=== PATIENT | female | born 1940 | race Two or more races ===

== ENCOUNTER 2024-01-28 12:50 | Emergency (ER) | payer OTHER ==
[~2024-01-28] VITALS: Ht 149.9 cm; Wt 51.0 kg
[2024-01-28 14:14] VITALS: BP 145/47; PULSE 87; RESP 18; O2SAT 93
[2024-01-28] MEDS ORDERED: ACET-1080 PO (14:14)
[2024-01-28] MEDS: ACETAMINOPHEN 500 MG TAB PO ONE (14:19)
== END 2024-01-28 14:42 | disposition home or self-care (01) ==
LOC: ER 12:53
DX: R51.9 Headache, unspecified (principal); I10 Essential (primary) hypertension; Z79.899 Other long term (current) drug therapy; W18.39XA Other fall on same level, initial encounter; Y93.89 Activity, other specified; Y92.89 Other specified places as the place of occurrence of the external cause; Y99.8 Other external cause status
CPT/HCPCS: 70450

== ENCOUNTER 2025-01-22 12:34 | Emergency (ER) | payer OTHER ==
[~2025-01-22] VITALS: Ht 149.9 cm; Wt 49.0 kg
[~2025-01-22 12:34] MED LIST: ACET-1080 PO
[2025-01-22 16:20] LABS: Hematocrit 40.2 % (36.0-46.0); Hemoglobin 13.7 g/dL (12.2-16.2); Mean Corpuscular Hemoglobin 33.1 pg (28.0-32.0); Mean Corpuscular Volume 97.5 fL (80.0-100.0); Nucleated Red Blood Cells % 0.1 %
[2025-01-22 16:23] LABS: Potassium 4.1 mmol/L (3.5-5.1)
[2025-01-22 16:24] LABS: Anion Gap 13 (5-15); Calcium 10.2 mg/dL (8.7-10.4); Carbon Dioxide 23 mmol/L (20-31)
[2025-01-22 16:25] LABS: Chloride 94 mmol/L (98-107); Sodium 130 mmol/L (136-145)
[2025-01-22 16:29] LABS: BUN/Creatinine Ratio 16.8 (10.0-20.0)
[2025-01-22 16:30] LABS: Blood Urea Nitrogen 26 mg/dL (9-23); Glucose 221 mg/dL (74-106)
--- NOTE | 2025-01-22 16:48 | DVH ---
EXAMINATION: XY R RIB XRAY INDICATION: Pain R/o fracture COMPARISON: None TECHNIQUE: Frontal view of the chest and 2 views of the right ribs history FINDINGS: No focal consolidation, pleural effusion or significant pneumothorax. Normal cardiomediastinal silhou ette. No displaced right rib fracture. IMPRESSION: No acute cardiopulmonary disease. No displaced right rib fracture.
--- NOTE | 2025-01-22 16:55 | ED.PDOC ---
Back pain HPI HPI Comments 84-year-old female presents to the ER with no prior MHx associated with a chief complaint of a fall. Patient reports on slipping on a puddle of water in the kitchen while cooking at 7:00 a.m. this morning with no LOC but has right rib pain. Chief Complaint: Back Pain Time Seen by MD: 15:30 Reviewed Notes: Nurses Notes, Medications, Allergies Allergies: Uncoded Allergies: SEA FOOD (Allergy, Unknown, 01/28/24) Home Meds Active Scripts Lidocaine (LIDODERM 5% TOPICAL PATCH) 1 Patch Ph, 1 PATCH TOP DAILY for 30 Days, #30 PATCH 0 Refills Prov:LIEN COX NP 01/22/25 Acetaminophen (Tylenol 8 Hour Arthritis) 650 Mg Tab, 650 MG PO TID, #30 TAB Prov:LIEN COX NP 01/22/25 Information Source: Patient Mode of Arrival: Ambulatory Timing: Hours Duration: Since onset, Hours Severity: Moderate Prehospital treatment: None Quality: Aching Onset: Fall Circumstance: Other (Slip and fall) History of: None Associated signs and symptoms: None Past Medical History PAST MEDICAL HISTORY: Unknown Surgical History: Denies all surgeries 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 Hx Family History Family History: Reviewed,noncontributory to illness, Unknown Social History Smoker: Non-Smoker Alcohol: Denies ETOH Use Drugs: Denies Drug Use Lives In: Home Constitutional: denies: chills, diaphoresis, fatigue, fever, malaise, sweats, weakness, others EENTM: denies: blurred vision, double vision, ear bleeding, ear discharge, ear drainage, ear pain, ear ringing, eye pain, eye redness, hearing loss, mouth pain, mouth swelling, nasal discharge, nose bleeding, nose congestion, nose pain, photophobia, tearing, throat pain, throat swelling, voice changes, others Respiratory: denies: cough, hemoptysis, orthopnea, SOB at rest, shortness of breath, SOB with excertion, stridor, wheezing, others Cardiovascular: denies: chest pain, dizzy spells, diaphoresis, Dyspnea on exertion, edema, irregular heart beat, left arm pain, lightheadedness, palpitations, PND, syncope, others Gastrointestinal: denies: abdomen distended, abdominal pain, blood streaked bowels, constipated, diarrhea, dysphagia, difficulty swallowing, hematemesis, melena, nausea, poor appetite, poor fluid intake, rectal bleeding, rectal pain, vomiting, others Genitourinary: denies: abnormal vagina bleeding, burning, dyspareunia, dysuria, flank pain, frequency, hematuria, incontinence, pain, , vagina discharge, urgency, others Neurological: denies: dizziness, fainting, headache, left sided numbness, left sided weakness, numbness, paresthesia, pre-existing deficit, right sided numbness, right sided weakness, seizure, speech problems, tingling, tremors, weakness, others Musculoskeletal: reports: others (Rib pain); denies: back pain, gout, joint pain, joint swelling, muscle pain, muscle stiffness, neck pain Integumetry: denies: bruises, change in color, change in hair/nails, dryness, laceration, lesions, lumps, rash, wounds, others Allergic/Immunocompromised: denies: Difficulty Healing, Frequent Infections, Hives, Itching, others Hematologic/Lymphatic: denies: anemia, blood clots, easy bleeding, easy bruising, swollen glands, others Endocrine: denies: excessive hunger, excessive sweating, excessive thirst, excessive urination, flushing, intolerance to cold, intolerance to heat, unexplained weight gain, unexplained weight loss, others Psychiatric: denies: anxiety, bipolar disorder, depression, hopeless, panic disorder, schizophrenia, sleepless, suicidal, others All Other Systems: Reviewed and Negative Physical Exam General Appearance: No Apparent Distress, Normal HEENT: Normal ENT Inspection, Pharynx Normal, TMs Normal Neck: Full Range of Motion, Non-Tender, Normal, Normal Inspection Respiratory: Chest Non-Tender, Lungs Clear, No Accessory Muscle Use, No Respiratory Distress, Normal Breath Sounds Cardiovascular: No Edema, No JVD, No Murmur, No Gallop, Normal Peripheral Pulses, Regular Rate/Rhythm Breast Exam: Deferred Gastrointestinal: No Organomegaly, Non Tender, No Pulsatile Mass, Normal Bowel Sounds, Soft Genitalia: Deferred Pelvic: Deferred Rectal: Deferred Extremities: No calf tenderness, Normal capillary refill, Normal inspection, Normal range of motion, Non-tender, No pedal edema Musculoskeletal : Apperance: Normal Neurologic: Alert, flower grader II-XII nml as Tested, No Motor Deficits, Normal Affect, Normal Mood, No Sensory Deficits Cerebellar Function: Normal Reflexes: Normal Skin: Dry, Normal Color, Warm Lymphatic: No Adenopathy Was a procedure done? Was a procedure done?: No Back Pain Differential Dx Differential Diagnosis: Fracture, Musculoskeletal Pain, Strain X-Ray, Labs, Meds, VS Vital Signs Date Time Temp Pulse Resp B/P (MAP) Pulse Ox O2 Delivery O2 Flow Rate FiO2 01/22/25 17:39 57 17 96 Room Air 01/22/25 17:39 98.2 57 16 149/60 (89) 96 98.2 01/22/25 12:35 98.9 55 15 176/73 96 98.9 Lab Test 01/22/25 15:59 Range/Units White Blood Count 11.3 H 4.4-10.8 10^3/uL Red Blood Count 4.13 4.0-5.20 10^6/uL Hemoglobin 13.7 12.2-16.2 g/dL Hematocrit 40.2 36.0-46.0 % Mean Corpuscular Volume 97.5 80.0-100.0 fL Mean Corpuscular Hemoglobin 33.1 H 28.0-32.0 pg Mean Corpuscular Hemoglobin Concent 34.0 32.0-36.0 g/dL Red Cell Distribution Width 13.6 11.8-14.3 % Platelet Count 237 140-450 10^3/uL Mean Platelet Volume 7.0 6.9-10.8 fL Neutrophils (%) (Auto) 69.9 37.0-80.0 % Lymphocytes (%) (Auto) 21.8 10.0-50.0 % Monocytes (%) (Auto) 7.6 0.0-12.0 % Eosinophils (%) (Auto) 0.5 0.0-7.0 % Basophils (%) (Auto) 0.2 0.0-2.0 % Neutrophils # (Auto) 7.9 1.6-8.6 10 ^3/uL Lymphocytes # (Auto) 2.5 0.4-5.4 10 ^3/uL Monocytes # (Auto) 0.9 0-1.3 10 ^3/uL Eosinophils # (Auto) 0.1 0-0.8 10 ^3/uL Basophils # (Auto) 0 0-0.2 10 ^3/uL Nucleated Red Blood Cells 0.1 % Sodium Level 130 L 136-145 mmol/L Potassium Level 4.1 3.5-5.1 mmol/L Chloride Level 94 L 98-107 mmol/L Carbon Dioxide Level 23 20-31 mmol/L Anion Gap 13 5-15 Blood Urea Nitrogen 26 H 9-23 mg/dL Creatinine 1.55 H 0.550-1.02 mg/dL Glomerular Filtration Rate Calc 33 >90 mL/min BUN/Creatinine Ratio 16.8 10.0-20.0 Serum Glucose 221 H 74-106 mg/dL Calcium Level 10.2 8.7-10.4 mg/dL X-Ray, Labs, Meds, VS Comment 84-year-old female presents to the ER with no prior MHx associated with a chief complaint of a fall. Patient arrives alert and oriented, ABC's intact, afebrile, vital signs stable, saturating well in room air CBC was ordered to exclude anemia, blood loss, or infection. BMP was ordered to exclude electrolyte abnormalities, renal failure, dehydration, hyperglycemia Urinalysis was ordered to rule out UTI or hematuria. Diagnostic imaging ordered by me and results interpreted by radiology : Right rib x-ray Disposition: Discharge. Strict return precautions discussed with the patient with full understanding. Supportive care advised (rest, ice, heat, NSAIDs, stretching exercises) Massage muscles with cold pack or ice for 20 minutes 4 times per day. Usually most useful if there is swelling during the first 48 hours Heating pad on the most painful area for 20 minutes to relieve muscle spasm Sleep and the most comfortable sleeping position (usually on the side with knees bent) Light stretching, no strenuous activity, avoid frequent bending, avoid carrying heavy objects Discussed possible benefits of yoga and acupuncture Return precautions Patient is stable for discharge at this time. External notes reviewed. Test results and diagnostic imaging interpreted. All diagnostic findings, discharge care, education and instructions provided Follow-up with PCP in 2 to 3 days Patient verbalized understanding and agreed to treatment plan Vital signs stable, afebrile, no acute distress noted Patient ambulatory with strong steady gait Advised to return precautions for any new or worsening symptoms, return to ER immediately for re-evaluation Patient is aware that the purpose of this visit was for an acute medical emergency requiring emergent stabilization. Chronic conditions, including malignancies have not been ruled out. Patient is instructed to follow up with PCP as directed and discharge instructions for continued care and workup. If unable to arrange follow-up, patient is to return to the emergency department for reassessment. Patient (parent or legal guardian if applicable) was given verbal and written discharge instructions and acknowledges understanding. Additional MDM Review of External, Non-ED records: External records reviewed. Discussion with independent historian (EMS, family) history obtained from the patient/parents (if applicable) at bedside Chronic conditions affecting care: None Social determinants of health affecting care: None Consideration of admission (observation or admission): I considered escalation of care to admission for this patient, however given the reassuring workup, the patient is safe for outpatient management. Discussion with the Radiology: No Tests considered but not performed: Prescription medication considered but not given: 12 lead EKG interpretation: Time of 1ST Reevaluation: 16:00 Reevaluation 1ST: Unchanged Patient Education/Counseling: Diagnosis, Treatment, Prognosis Family Education/Counseling: No Family Present SEPSIS Sepsis Screen Date sepsis recognized/suspect: Jan 22, 2025 Time Sepsis recognized/suspect: 1238 Recent Procedure: No On Antibiotic Therapy: No Respiratory Rate >20: No Heart Rate >90: No Temp<36 C (96.8 F) or >38.3 C: No SBP <90 or MAP <65 mmHG: No New Acute Mental Status Change: No Is the patient on CPAP, BIPAP,: No Physician Orders R Rib Xray (01/22/25 15:46) Vital Signs Date Time Temp Pulse Resp B/P (MAP) Pulse Ox O2 Delivery O2 Flow Rate FiO2 01/22/25 17:39 57 17 96 Room Air 01/22/25 17:39 98.2 57 16 149/60 (89) 96 98.2 01/22/25 12:35 98.9 55 15 176/73 96 98.9 Laboratory Tests Test 01/22/25 15:59 White Blood Count 11.3 10^3/uL (4.4-10.8) H Departure 1 Departure Time of Disposition: 16:55 Impression: Primary Impression: Rib pain Disposition: 01 HOME / SELF CARE / HOMELESS Condition: Stable e-Prescriptions Lidocaine (LIDODERM 5% TOPICAL PATCH) 1 Patch Ph 1 PATCH TOP DAILY for 30 Days, #30 PATCH 0 Refills Prov: LIEN COX BAGGAGE PORTER 01/22/25 Acetaminophen (Tylenol 8 Hour Arthritis) 650 Mg Tab 650 MG PO TID, #30 TAB Prov: LIEN COX BAGGAGE PORTER 01/22/25 Critical Care Note Critical Care Time?: No Stability Stability form required: No Heart Score Heart Score: Heart Score Response (Comments) Value History N/A 0 EKG N/A 0 Age N/A 0 Risk Factors N/A 0 Troponin N/A 0 Total 0 I personally scribed for LIEN COX NP ([email or web address]) on 01/22/25 at 16:55. Electronically submitted by Armaan Rice ([email or web address]). LIEN COX NP Jan 22, 2025 16:55
[2025-01-22] MEDS ORDERED: LIDO5DIS21 TOP (17:34)
[2025-01-22] MEDS ORDERED: ACET-1080 PO (17:34)
[2025-01-22 17:39] VITALS: BP 149/60; PULSE 57; RESP 17; TEMP 98.2; O2SAT 96
== END 2025-01-22 17:40 | disposition home or self-care (01) ==
LOC: ER 12:34
DX: R07.81 Pleurodynia (principal); Z91.013 Allergy to seafood; W18.39XA Other fall on same level, initial encounter; Y93.89 Activity, other specified; Y92.89 Other specified places as the place of occurrence of the external cause; Y99.8 Other external cause status
CPT/HCPCS: 36415; 71101; 80048; 85025

== ENCOUNTER 2025-02-03 09:16 | Emergency (ER) | payer OTHER ==
[~2025-02-03] VITALS: Ht 149.9 cm; Wt 50.7 kg
[~2025-02-03 09:16] MED LIST changes: +LIDO5DIS21 TOP
--- NOTE | 2025-02-03 10:56 | ED.PDOC ---
Back pain HPI HPI Comments A 84-YEAR-OLD FEMALE PRESENTS TO THE ED VIA WHEELCHAIR WITH A C/C OF LOWER BACK PAIN WITH ASSOCIATED RIGHT RIB PAIN OF 3 WEEKS AGO STATUS POST FALL. PATIENT CAME TO THE ED ON January, AND WAS DISCHARGED WITH RIB PAIN. PATIENT REPORTS TAKING TRAMADOL WITH LITTLE RELIEF NOTED. PATIENT ALSO STATES SHE HAS BEEN USIN G LIDOCAINE PATCHES BUT REPORTS NO RELIEF. PATIENT HAS NO FOR THE COMPLAINTS AT THIS TIME. PATIENT DENIES NAUSEA, VOMITING, DIARRHEA, FEVER, OR CHILLS. PATIENT IS ALERT, ORIENTED X 4, AND HAS STEADY GAIT. Chief Complaint: Back Pain Time Seen by MD: 10:32 Reviewed Notes: Nurses Notes, Medications, Allergies Allergies: Uncoded Allergies: SEA FOOD (Allergy, Unknown, 01/28/24) Home Meds Active Scripts Lidocaine (LIDODERM 5% TOPICAL PATCH) 1 Patch Ph, 1 PATCH TOP DAILY for 30 Days, #30 PATCH 0 Refills Prov:LIEN COX NP 01/22/25 Acetaminophen (Tylenol 8 Hour Arthritis) 650 Mg Tab, 650 MG PO TID, #30 TAB Prov:LIEN COX NP 01/22/25 Information Source: Patient Mode of Arrival: Ambulatory Timing: Weeks Duration: Since onset Location of Back pain: (B) Lower back Severity: Moderate Prehospital treatment: None Onset: Fall Modifying Factors: Movement, Walking Associated signs and symptoms: Other (LOWER BACK PAIN WITH ASSOCIATED RIGHT RIB PAIN) Past Medical History PAST MEDICAL HISTORY: DM, HTN Surgical History: Denies all surgeries 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: 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 all 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 BINDER FEEDER OFFBEARER Hx Family History Family History: Reviewed,noncontributory to illness, Unknown Social History Smoker: Non-Smoker Alcohol: Denies ETOH Use Drugs: Denies Drug Use Lives In: Home Constitutional: denies: chills, diaphoresis, fatigue, fever, malaise, sweats, weakness, others EENTM: denies: blurred vision, double vision, ear bleeding, ear discharge, ear drainage, ear pain, ear ringing, eye pain, eye redness, hearing loss, mouth pain, mouth swelling, nasal discharge, nose bleeding, nose congestion, nose pain, photophobia, tearing, throat pain, throat swelling, voice changes, others Respiratory: denies: cough, hemoptysis, orthopnea, SOB at rest, shortness of breath, SOB with excertion, stridor, wheezing, others Cardiovascular: denies: chest pain, dizzy spells, diaphoresis, Dyspnea on exertion, edema, irregular heart beat, left arm pain, lightheadedness, palpitations, PND, syncope, others Gastrointestinal: denies: abdomen distended, abdominal pain, blood streaked bowels, constipated, diarrhea, dysphagia, difficulty swallowing, hematemesis, melena, nausea, poor appetite, poor fluid intake, rectal bleeding, rectal pain, vomiting, others Genitourinary: denies: abnormal vagina bleeding, burning, dyspareunia, dysuria, flank pain, frequency, hematuria, incontinence, pain, , vagina disc harge, urgency, others Neurological: denies: dizziness, fainting, headache, left sided numbness, left sided weakness, numbness, paresthesia, pre-existing deficit, right sided numbness, right sided weakness, seizure, speech problems, tingling, tremors, weakness, others Musculoskeletal: reports: back pain, muscle pain, others (RIB PAIN ); denies: gout, joint pain, joint swelling, muscle stiffness, neck pain Integumetry: denies: bruises, change in color, change in hair/nails, dryness, laceration, lesions, lumps, rash, wounds, others Allergic/Immunocompromised: denies: Difficulty Healing, Frequent Infections, Hives, Itching, others Hematologic/Lymphatic: denies: anemia, blood clots, easy bleeding, easy bruising, swollen glands, others Endocrine: denies: excessive hunger, excessive sweating, excessive thirst, excessive urination, flushing, intolerance to cold, intolerance to heat, unexplained weight gain, unexplained weight loss, others Psychiatric: denies: anxiety, bipolar disorder, depression, hopeless, panic disorder, schizophrenia, sleepless, suicidal, others All Other Systems: Reviewed and Negative Physical Exam General Appearance: No Apparent Distress, Normal HEENT: Normal ENT Inspection, PERRL/EOMI, Pharynx Normal, TMs Normal Neck: Full Range of Motion, Non-Tender, Normal, Normal Inspection Respiratory: Chest Non-Tender, Lungs Clear, No Accessory Muscle Use, No Respiratory Distress, Normal Breath Sounds Cardiovascular: No Edema, No JVD, No Murmur, No Gallop, Normal Peripheral Pulses, Regular Rate/Rhythm Breast Exam: Deferred Gastrointestinal: No Organomegaly, Non Tender, No Pulsatile Mass, Normal Bowel Sounds, Soft Genitalia: Deferred Pelvic: Deferred Rectal: Deferred Extremities: No calf tenderness, Normal capillary refill, Normal inspection, Normal range of motion, Non-tender, No pedal edema Musculoskeletal : Location: Bilateral Extremity Location: Back Apperance: Tenderness: Moderate (bony tenderness low back, no redness, swelling and deformity. ) Neurologic: Alert, cotton classer aide II-XII nml as Tested, No Motor Deficits, Normal Affect, Normal Mood, No Sensory Deficits Cerebellar Function: Normal Reflexes: Normal Skin: Dry, Normal Color, Warm Peripheral Pulses: 2+ carotid (R), 2+ carotid (L), 2+ dorsalis pedis (R), 2+ dorsalis pedis (L) Lymphatic: No Adenopathy Was a procedure done? Was a procedure done?: No Back Pain Differential Dx Differential Diagnosis: DJD, Fracture, Musculoskeletal Pain, Strain X-Ray, Labs, Meds, VS Vital Signs Date Time Temp Pulse Resp B/P (MAP) Pulse Ox O2 Delivery O2 Flow Rate FiO2 02/03/25 11:00 61 18 97 Room Air 02/03/25 11:00 98.0 61 18 175/73 (107) 97 98.0 02/03/25 09:20 97.8 53 16 136/65 96 97.8 Lab Test 02/03/25 10:01 Range/Units Urine Color Pending Urine Clarity Pending Urine pH Pending Urine Specific Liberal Pending Urine Protein Pending Urine Ketones Pending Urine Blood Pending Urine Nitrite Pending Urine Bilirubin Pending Urine Urobilinogen Pending Urine Leukocyte Esterase Pending Urine RBC Pending Urine Microscopic WBC Pending Urine Squamous Epithelial Cells Pending Urine Bacteria Pending Urine Glucose Pending Current Medications Medications (Trade) Dose Ordered Sig/Leonarda Route Start Time Stop Time Status Last Admin Acetaminophen/ Hydrocodone Bitart ([facility] 5/325MG Tab) 1 tab ONCE ONCE PO 02/03/25 10:45 02/03/25 10:46 DC 02/03/25 10:[address] [address] Ph: [phone] DIAGNOSTIC IMAGING Diagnostic Imaging Report : [id number] Signed PATIENT: [address] GACCT: [id number] UNIT: [id number] : 1940 LOC: ER ROOM / BED: / AGE / SEX: 84 / F ADM STATUS: REG ER SERVICE 1038 ORDERING PHYSICIAN: ALLISON NUNEZ PROCEDURE(s): LS2CT - LS SPINE WO CONTRAST REASON: FALL ORDER NUMBER(s): [id number], ACCESSION NUMBER(s): [id number] CT LS SPINE WO CONTRAST INDICATION: FALL EXAM DATE: 02/03/2025 10:55 AM COMPARISON: None RADIATION DOSE: CTDIvol: 22.07 mGy, DLP: 690.1 mGy*cm PROCEDURE: Utilizing the CT scanner, contiguous axial scans were obtained through the lumbar spine. Coronal and sagittal reformatted images were then generated. All CT scans at this medical facility are performed using dose modulation techniques as appropriate to a performed exam including the following: Automated exposure control was utilized; adjustment of the MA and/or KV according to patient size; and use of iterative reconstruction technique. FINDINGS: Mild T12 compression fracture. There are 5 lumbar segments. The lumbar vertebral body heights and alignment are maintained. The intervertebral disc spaces are narrowed. The cortical margins are otherwise intact. The paraspinal soft tissues are normal. On axial images: There is multilevel posterior disc osteophyte complex with mild central canal narrowing at L4-5. No significant neural foramina narrowing seen. Facet joints are degenerative. IMPRESSION: Mild T12 compression fracture. ATED BY: WILVER TELLO MD DICTATED DATE/TIME: 02/03/25 1148 SIGNED BY: WILVER TELLO MD SIGNED DATE/TIME: 02/03/25 1148 CC: X-Ray, Labs, Meds, VS Comment EXTERNAL MEDICAL RECORDS REVIEWED: [NONE] INDEPENDENT HISTORIANS: [NONE] SOCIAL DETERMINANTS OF HEALTH: [NONE] LABS ORDERED: NONE REVIEWED AND INTERPRETED RESULTS: NONE IMAGING ORDERED: CT SPINE WITH MILD T12 COMPRESSION FRACTURE IDENTIFIED. TREATMENTS ORDERED: [facility] 5/325MG PROCEDURES PERFORMED: NONE CRITICAL CARE TIME: NONE I HAVE DISCUSSED THE PATIENT WITH THE ATTENDING PHYSICIAN DR. ORTEZ AND SHE AGREES WITH THE PATIENT'S PLAN OF CARE AND DISPOSITION. BASED ON HISTORY OF PRESENT ILLNESS, AND PHYSICAL EXAM, PATIENT WILL BE DISCH ARGED HOME. SHARED DECISION MAKING: DISCUSSED WITH PATIENT THAT THEIR WORKUP WAS NORMAL. PATIENT INSTRUCTED TO FOLLOW UP WITH PRIMARY CARE PROVIDER IN 1-2 DAYS FOR RE- EVALUATION OF SYMPTOMS. PATIENT VERBALIZES UNDERSTANDING TO RETURN TO ED FOR NEW OR WORSENING SYMPTOMS OR IF FOLLOW UP WITH PCP CANNOT BE OBTAINED. PATIENT FEELS COMFORTABLE GOING HOME AT THIS TIME. ALL QUESTIONS ADDRESSED AT TIME OF DISCHARGE. Images Reviewed?: Images reviewed and evaluated by me Time of 1ST Reevaluation: 11:21 Reevaluation 1ST: Improved Patient Education/Counseling: Diagnosis, Treatment, Need For Follow Up Family Education/Counseling: Diagnosis, Treatment, Need For Follow Up Medical Screening: No EMC Exist At This Time SEPSIS Sepsis Screen Date sepsis recognized/suspect: Feb 03, 2025 Time Sepsis recognized/suspect: 921 Recent Procedure: No On Antibiotic Therapy: No Respiratory Rate >20: No Heart Rate >90: No Temp<36 C (96.8 F) or >38.3 C: No SBP <90 or MAP <65 mmHG: No New Acute Mental Status Change: No Is the patient on CPAP, BIPAP,: No Physician Orders Ls Spine Wo Contrast (02/03/25 10:38) Urinalysis (02/03/25 10:01) Vital Signs Date Time Temp Pulse Resp B/P (MAP) Pulse Ox O2 Delivery O2 Flow Rate FiO2 02/03/25 11:00 61 18 97 Room Air 02/03/25 11:00 98.0 61 18 175/73 (107) 97 98.0 02/03/25 09:20 97.8 53 16 136/65 96 97.8 Medications Medications Dose Ordered Sig/Leonarda Route Start Time Stop Time Status Last Admin Dose Admin Acetaminophen/ Hydrocodone Bitart 1 tab ONCE ONCE PO 02/03/25 10:45 02/03/25 10:46 DC 02/03/25 10:59 Departure 1 Departure Time of Disposition: 12:20 Impression: Primary Impression: T12 compression fracture Qualified Codes: S22.080A - Wedge compression fracture of T11-T12 vertebra, initial encounter for closed fracture Additional Impression: DDD (degenerative disc disease), lumbar Qualified Codes: M51.360 - Other intervertebral disc degeneration, lumbar region with discogenic back pain only Disposition: 01 HOME / SELF CARE / HOMELESS Condition: Stable Additional Instructions: FOLLOW-UP WITH PCP IN 1 TO 2 DAYS. TAKE MEDICATIONS PRESCRIBED. RETURN TO ED FOR ANY NEW OR WORSENING SYMPTOMS. Discharged With: Self, Relative Critical Care Note Critical Care Time?: No Stability Stability form required: No Heart Score Heart Score: Heart Score Response (Comments) Value History N/A 0 EKG N/A 0 Age N/A 0 Risk Factors N/A 0 Troponin N/A 0 Total 0 I personally scribed for ALLISON NUNEZ ([email or web address]) on 02/03/25 at 10:56. Electronically submitted by Zakiya Franco ([employer]). I personally scribed for ALLISON NUNEZ ([email or web address]) on 02/03/25 at 10:58. Electronically submitted by Zakiya Franco ([employer]). I personally scribed for ALLISON NUNEZ ([email or web address]) on 02/03/25 at 11:53. Electronically submitted by Zakiya Franco ([employer]). I personally scribed for ALLISON NUNEZ ([email or web address]) on 02/03/25 at 12:06. Electronically submitted by Zakiya Franco ([employer]). ALLISON NUNEZ Feb 03, 2025 10:56
[2025-02-03] MEDS: HYDROcodone-ACET 5/325MG TAB PO ONE (10:59)
[2025-02-03 11:00] VITALS: BP 175/73; PULSE 61; RESP 18; TEMP 98; O2SAT 97
--- NOTE | 2025-02-03 11:51 | DVH ---
CT LS SPINE WO CONTRAST INDICATION: FALL EXAM DATE: 02/03/2025 10:55 AM COMPARISON: None RADIATION DOSE: CTDIvol: 22.07 mGy, DLP: 690.1 mGy*cm PROCEDURE: Utilizing the CT scanner, contiguous axial scans were obtained through the lumbar spine. C oronal and sagittal reformatted images were then generated. All CT scans at this medical facility are performed using dose modulation techniques as appropriate t o a performed exam including the following: Automated exposure control was utilized; adjustment of th e MA and/or KV according to patient size; and use of iterative reconstruction technique. FINDINGS: Mild T12 compression fracture. There are 5 lumbar segments. The lumbar vertebral body heigh ts and alignment are maintained. The intervertebral disc spaces are narrowed. The cortical margins ar e otherwise intact. The paraspinal soft tissues are normal. On axial images: There is multilevel posterior disc osteophyte complex with mild central canal narrow ing at L4-5. No significant neural foramina narrowing seen. Facet joints are degenerative. IMPRESSION: Mild T12 compression fracture.
[2025-02-03 12:40] LABS: Urine Protein, UAD Negative (Negative)
== END 2025-02-03 12:17 | disposition home or self-care (01) ==
LOC: ER 09:16
DX: S22.080A Wedge compression fracture of T11-T12 vertebra, initial encounter for closed fracture (principal); M51.360 Other intervertebral disc degeneration, lumbar region with discogenic back pain only; E11.9 Type 2 diabetes mellitus without complications; I10 Essential (primary) hypertension; Z79.899 Other long term (current) drug therapy; Z91.013 Allergy to seafood; W19.XXXA Unspecified fall, initial encounter; Y93.89 Activity, other specified; Y92.89 Other specified places as the place of occurrence of the external cause; Y99.8 Other external cause status
CPT/HCPCS: 72131; 81001